=== PATIENT | female | born 1990 | race Caucasian/White ===

== ENCOUNTER 2016-12-14 11:21 | Emergency (ER) | payer BC, MEDICAID, OTHER ==
[~2016-12-14] VITALS: Ht 152.4 cm; Wt 45.0 kg
[~2016-12-14 11:21] MED LIST: NORE1TAB60 PO; SYNT150T PO
[2016-12-14 11:24] VITALS: BP 109/68; PULSE 107; RESP 15; TEMP 97.5; O2SAT 97
--- NOTE | 2016-12-14 11:27 | PD ---
Physical Exam Time Seen by Provider: 11:25 Narrative 26 y/o female lmp 2/5 currently . She presents with dizziness, numbness in the lower extremities, lightheadedness, dyspnea while at work today. VSS Seen at triage desk. Awaiting bed placement. Data Data Last Documented VS Vital Signs Date Time Temp Pulse Resp B/P Pulse Ox O2 Delivery O2 Flow Rate FiO2 12/14/16 11:24 97.5 107 15 109/68 97 MDM Medical Record Reviewed: Yes Supervised Visit with MIGUEL: No Gregg Acevedo December 14, 2016 11:27
[2016-12-14] MEDS ORDERED: SODIUM CHLOR 0.9% 1000 ML INJ 1,000 ML IV ONE (11:40)
[2016-12-14] MEDS ORDERED: ONDANSETRON HCL 4 MG/2 ML VIAL IVP ONE (11:45)
[2016-12-14] MEDS ORDERED: SODIUM CHLORIDE 0.9% FLUSH 10 ML FLUSH IVF PRN (11:45)
--- NOTE | 2016-12-14 11:47 | PD ---
HPI Chief Complaint: Related Problem Time Seen by Provider: 11:42 Travel History International Travel<30 days: No Contact w/Intl Traveler<30days: No Traveled to known affect area: No History of Present Illness HPI Patient is a 26-year-old female presenting to the emergency department with complaint of feeling shaky, palpitations, leg weakness, dizziness, blurry vision and shortness of breath. Patient states her symptoms have been ongoing for 2 months, they happen on a daily basis. Patient states she starts out feeling very shaky this is followed by a weakness in her legs then she gets dizzy and short of breath. While this is occurring she reports feeling her heart is racing. With the shortness of breath she reports that her chest feels heavy as if someone is sitting on it. Patient is approximately 8 weeks per her report, she's had nausea associated with the , she averages 1-2 episodes of vomiting daily. She reports a decreased appetite secondary to the nausea. Additionally patient states she was diagnosed with hypothyroidism, her normal weight is around 130 pounds, 6 months ago she started losing weight at that time she was 160 pounds now she reports her weight as 91 pounds. She has not been on any thyroid medication in over a year. Patient's past medical history is also significant for rheumatoid arthritis, she states she takes methylprednisolone daily. A1. Patient has not been evaluated by [employer] at this time, she recently secured Medicaid. PFSH Past Medical History Arthritis: Yes (rheumatoid) Autoimmune Disease: No Anxiety: No Depression: Yes Genitourinary: No Musculoskeletal: No Neurologic: No Psychiatric: No Respiratory: No Thyroid Disease: Yes ?: LMP: 09/05/16 : 0 Past Surgical History Other Surgery: Yes (TUBES IN EAR A CHILD) Social History Alcohol Use: No Tobacco Use: No Substance Use: No Allergies-Medications (Allergen,Severity, Reaction): Coded Allergies: Penicillin (Verified Allergy, Severe, Rash, 12/14/16) Reported Meds & Prescriptions Reported Meds & Active Scripts Active Reported Methylprednisolone 4 Mg Tab 4 Mg PO DAILY Review of Systems Except as stated in HPI: all other systems reviewed are Neg General / Constitutional: Positive: Weight Loss, No: Fever, Chills Eyes: Positive: Blurred Vision (now resolved) HENT: Positive: Lightheadedness, Congestion, No: Headaches Cardiovascular: Positive: Palpitations, Diaphoresis, No: Chest Pain or Discomfort Respiratory: Positive: Shortness of Breath Gastrointestinal: Positive: Nausea, Vomiting, Loss of Appetite, No: Abdominal Pain, Changes in Bowel Habits Genitourinary: No: Dysuria, Discharge, Vaginal Bleeding Neurologic: Positive: Weakness, Dizziness, No: Syncope, Focal Abnormalities, Change in Mentation, Sensory Disturbance Physical Exam Narrative GENERAL: Thin, well-developed, alert female. Resting comfortably in no acute distress. SKIN: Focused skin assessment warm/dry. HEAD: Atraumatic. Normocephalic. EYES: Pupils equal and round. No scleral icterus. No injection or drainage. ENT: No nasal bleeding or discharge. Mucous membranes pink and moist. NECK: Trachea midline. No JVD. CARDIOVASCULAR: Slightly tachycardic. No murmur appreciated. RESPIRATORY: No accessory muscle use. Clear to auscultation. Breath sounds equal bilaterally. GASTROINTESTINAL: Abdomen soft, non-tender, nondistended. Hepatic and splenic margins not palpable. MUSCULOSKELETAL: No obvious deformities. No clubbing. No cyanosis. No edema. NEUROLOGICAL: Awake and alert. No obvious cranial nerve deficits. Motor grossly within normal limits. Normal speech. PSYCHIATRIC: Appropriate mood and affect; insight and judgment normal. Data Data Last Documented VS Vital Signs Date Time Temp Pulse Resp B/P Pulse Ox O2 Delivery O2 Flow Rate FiO2 12/14/16 11:24 97.5 107 15 109/68 97 Orders Electrocardiogram (12/14/16 11:40) Ed Urine Pregnancytest Poc (12/14/16 11:40) Complete Blood Count With Diff (12/14/16 11:40) Comprehensive Metabolic Panel (12/14/16 11:40) Ckmb (Isoenzyme) Profile (12/14/16 11:40) Troponin I (12/14/16 11:40) Urinalysis - C+S If Indicated (12/14/16 11:40) Blood Glucose (12/14/16 11:40) Iv Access Insert/Monitor (12/14/16 11:40) Ondansetron Inj (Zofran Inj) (12/14/16 11:45) Sodium Chloride 0.9% Flush (Ns Flush) (12/14/16 11:45) Sodium Chlor 0.9% 1000 Ml Inj (Ns 1000 M (12/14/16 11:40) Thyroid Stimulating Hormone (12/14/16 11:40) Free Thyroxine (T4) (12/14/16 11:40) Urine Culture (12/14/16 11:53) Potassium Chloride (Kcl) (12/14/16 12:45) CKMB (12/14/16 11:53) CKMB% (12/14/16 11:53) Labs Laboratory Tests Test 12/14/16 11:53 White Blood Count 9.8 TH/MM3 Red Blood Count 4.62 MIL/MM3 Hemoglobin 13.8 GM/DL Hematocrit 41.1 % Mean Corpuscular Volume 89.1 FL Mean Corpuscular Hemoglobin 29.9 PG Mean Corpuscular Hemoglobin 33.5 % Concent Red Cell Distribution Width 14.4 % Platelet Count 185 TH/MM3 Mean Platelet Volume 7.9 FL Neutrophils (%) (Auto) 64.2 % Lymphocytes (%) (Auto) 30.1 % Monocytes (%) (Auto) 4.7 % Eosinophils (%) (Auto) 0.6 % Basophils (%) (Auto) 0.4 % Neutrophils # (Auto) 6.3 TH/MM3 Lymphocytes # (Auto) 2.9 TH/MM3 Monocytes # (Auto) 0.5 TH/MM3 Eosinophils # (Auto) 0.1 TH/MM3 Basophils # (Auto) 0.0 TH/MM3 CBC Comment DIFF FINAL Differential Comment Urine Color YELLOW Urine Turbidity HAZY Urine pH 6.0 Urine Specific [place] 1.026 Urine Protein 30 mg/dL Urine Glucose (UA) NEG mg/dL Urine Ketones NEG mg/dL Urine Occult Blood NEG Urine Nitrite NEG Urine Bilirubin NEG Urine Urobilinogen 2.0 MG/DL Urine Leukocyte Esterase LARGE Urine RBC 7 /hpf Urine WBC 121 /hpf Urine Squamous Epithelial 15 /hpf Cells Urine Bacteria RARE /hpf Urine Hyaline Casts 7 /lpf Urine Mucus MANY /lpf Microscopic Urinalysis Comment CULTURE INDICATED Sodium Level 136 MEQ/L Potassium Level 3.3 MEQ/L Chloride Level 99 MEQ/L Carbon Dioxide Level 25.5 MEQ/L Anion Gap 12 MEQ/L Blood Urea Nitrogen 8 MG/DL Creatinine 0.83 MG/DL Estimat Glomerular Filtration 83 ML/MIN Rate Random Glucose 93 MG/DL Calcium Level 8.7 MG/DL Total Bilirubin 0.5 MG/DL Aspartate Amino Transf 31 U/L (AST/SGOT) Alanine Aminotransferase 25 U/L (ALT/SGPT) Alkaline Phosphatase 50 U/L Total Creatine Kinase 149 U/L Creatine Kinase MB 1.6 NG/ML Troponin I LESS THAN 0.02 NG/ML Total Protein 6.8 GM/DL Albumin 3.7 GM/DL Free Thyroxine 0.15 NG/DL Thyroid Stimulating Hormone GREATER THAN 3rd Gen 100.000 uIU/ML MDM Medical Decision Making Medical Screen Exam Complete: Yes Emergency Medical Condition: Yes Interpretation(s) Laboratory Tests Test 12/14/16 11:53 White Blood Count 9.8 TH/MM3 Red Blood Count 4.62 MIL/MM3 Hemoglobin 13.8 GM/DL Hematocrit 41.1 % Mean Corpuscular Volume 89.1 FL Mean Corpuscular Hemoglobin 29.9 PG Mean Corpuscular Hemoglobin 33.5 % Concent Red Cell Distribution Width 14.4 % Platelet Count 185 TH/MM3 Mean Platelet Volume 7.9 FL Neutrophils (%) (Auto) 64.2 % Lymphocytes (%) (Auto) 30.1 % Monocytes (%) (Auto) 4.7 % Eosinophils (%) (Auto) 0.6 % Basophils (%) (Auto) 0.4 % Neutrophils # (Auto) 6.3 TH/MM3 Lymphocytes # (Auto) 2.9 TH/MM3 Monocytes # (Auto) 0.5 TH/MM3 Eosinophils # (Auto) 0.1 TH/MM3 Basophils # (Auto) 0.0 TH/MM3 CBC Comment DIFF FINAL Differential Comment Urine Color YELLOW Urine Turbidity HAZY Urine pH 6.0 Urine Specific [place] 1.026 Urine Protein 30 mg/dL Urine Glucose (UA) NEG mg/dL Urine Ketones NEG mg/dL Urine Occult Blood NEG Urine Nitrite NEG Urine Bilirubin NEG Urine Urobilinogen 2.0 MG/DL Urine Leukocyte Esterase LARGE Urine RBC 7 /hpf Urine WBC 121 /hpf Urine Squamous Epithelial 15 /hpf Cells Urine Bacteria RARE /hpf Urine Hyaline Casts 7 /lpf Urine Mucus MANY /lpf Microscopic Urinalysis Comment CULTURE INDICATED Sodium Level 136 MEQ/L Potassium Level 3.3 MEQ/L Chloride Level 99 MEQ/L Carbon Dioxide Level 25.5 MEQ/L Anion Gap 12 MEQ/L Blood Urea Nitrogen 8 MG/DL Creatinine 0.83 MG/DL Estimat Glomerular Filtration 83 ML/MIN Rate Random Glucose 93 MG/DL Calcium Level 8.7 MG/DL Total Bilirubin 0.5 MG/DL Aspartate Amino Transf 31 U/L (AST/SGOT) Alanine Aminotransferase 25 U/L (ALT/SGPT) Alkaline Phosphatase 50 U/L Total Creatine Kinase 149 U/L Creatine Kinase MB 1.6 NG/ML Troponin I LESS THAN 0.02 NG/ML Total Protein 6.8 GM/DL Albumin 3.7 GM/DL Free Thyroxine 0.15 NG/DL Thyroid Stimulating Hormone GREATER THAN 3rd Gen 100.000 uIU/ML Vital Signs Date Time Temp Pulse Resp B/P Pulse Ox O2 Delivery O2 Flow Rate FiO2 12/14/16 11:24 97.5 107 15 109/68 97 Differential Diagnosis Cardiac arrhythmia versus electrolyte abnormality versus hypothyroidism versus hyperthyroidism versus other Narrative Course Patient is a 26-year-old female presenting to the emergency department for evaluation of dizziness, weakness, palpitations. Patient is approximately 8 weeks. Urinalysis is indicative of urinary tract infection, patient has a reported allergy to penicillin but states she can take amoxicillin. Initially patient's TSH is 100, her free T4 is 0.15, patient will be started on levothyroxine at 1.6 mcg/kg. Discussed with patient he can take 4-6 weeks but this dose to become therapeutic she will need to follow up with a primary care provider. She was advised to get on an empty stomach 30 minutes prior to meals at the same time every day. She'll be given information regarding the [place] [facility], this was verbally discussed with her. Patient verbalizes understanding of discharge instructions. She is encouraged to return to emergency department for any new or worsening symptoms. Patient is stable for discharge. Diagnosis Primary Impression: Hypothyroidism Qualified Code: E03.9 - Hypothyroidism, unspecified type Additional Impression: Urinary tract infection Qualified Code: N39.0 - Urinary tract infection with hematuria, site unspecified Referrals: [facility] Patient Instructions: General Instructions, Hypothyroidism (DC), Urinary Tract Infection in Women (ED) Additional Instructions: Establish care with an police or patrol park officer for routine care Follow up with a primary doctor/the [facility] for continued monitoring of your thyroid function Take medications as directed Complete full course of antibiotics as prescribed, maintain adequate fluid intake Return to emergency department for any new or worsening symptoms Med/Other Pt SpecificInfo: Prescription(s) given Scripts Multivit-Min W/Fe-FA ( and Iron)1 Tab Tab1 Tab PO DAILY 30 Days Prov:Penny Holden 12/14/16 Nitrofurantoin Monohydrate Macrocrystals (Macrobid)100 Mg [id number] Mg PO BID 7 Days Ref 0 Prov:Penny Holden 12/14/16 Levothyroxine 75 Mcg Tab75 Mcg PO DAILY #30 TAB Ref 0 Prov:Penny Holden 12/14/16 Disposition: 01 DISCHARGE HOME Condition: Stable Penny Holden December 14, 2016 11:47
[2016-12-14 12:14] LABS: AUTOMATED NEUTROPHIL # 6.3 TH/MM3 (1.8-7.7); BASOPHIL % 0.4 % (0.0-2.0); EOSINOPHIL # 0.1 TH/MM3 (0-0.4); EOSINOPHIL % 0.6 % (0.0-4.0); HEMATOCRIT 41.1 % (35.0-46.0); HEMO FLAGS DIFF FINAL; LYMPH % 30.1 % (9.0-44.0); LYMPHOCYTE # 2.9 TH/MM3 (1.0-4.8); MEAN CELL VOLUME 89.1 FL (80.0-100.0); MEAN CORPUSCULAR HEMOGLOBIN 29.9 PG (27.0-34.0); MEAN CORPUSCULAR HGB CONC 33.5 % (32.0-36.0); MONO % 4.7 % (0.0-8.0); NEUT % 64.2 % (16.0-70.0); PLATELET COUNT 185 TH/MM3 (150-450); RED BLOOD COUNT 4.62 MIL/MM3 (4.00-5.30); RED CELL DISTRIBUTION WIDTH 14.4 % (11.6-17.2); WHITE BLOOD COUNT 9.8 TH/MM3 (4.0-11.0)
[2016-12-14 12:23] LABS: BACTERIA, URINE RARE /hpf; BLOOD, URINE NEG (NEG); COMMENT (UR) CULTURE INDICATED; CULTURE IF INDICATED CULTURE INDICATED; GLUCOSE,URINE NEG (NEG); HYALINE CAST, URINE 7 /lpf (RARE); KETONE, URINE NEG (NEG); MUCUS URINE MANY /lpf (OCC); NITRITE,URINE NEG (NEG); SQUAMOUS EPITHELIAL CELL URINE 15 /hpf (0-5); URINE COLOR YELLOW (YELLW/STRAW)
[2016-12-14] MEDS ORDERED: METH4TAB6 PO (12:26)
[2016-12-14 12:30] LABS: ANION GAP 12 MEQ/L (5-15); AST (GOT) 31 U/L (15-37); BICARBONATE 25.5 MEQ/L (21.0-32.0); BLOOD UREA NITROGEN 8 MG/DL (7-18); CHLORIDE 99 MEQ/L (98-107); GLOMERULAR FILTRATION RATE 83 ML/MIN (>89); POTASSIUM 3.3 MEQ/L (3.5-5.1); SODIUM (NA) 136 MEQ/L (136-145)
[2016-12-14 12:41] LABS: ALKALINE PHOSPHATASE 50 U/L (45-117); ALT (GPT) 25 U/L (10-53); CREATINE KINASE 149 U/L (26-192); FREE T4 0.15 NG/DL (0.76-1.46); TOTAL BILIRUBIN ADULT 0.5 MG/DL (0.2-1.0)
[2016-12-14] MEDS ORDERED: POTASSIUM CHLORIDE 10 MEQ CONTROLLED RELEASE TAB PO ONE (12:45)
[2016-12-14 12:53] LABS: CKMB 1.6 NG/ML (0.5-3.6)
[2016-12-14] MEDS ORDERED: MACR100C2 PO (13:07)
[2016-12-14] MEDS ORDERED: PRENTAB44 PO (13:07)
[2016-12-14] MEDS ORDERED: LEVO75TA3 PO (13:07)
--- NOTE | 2016-12-14 13:11 | PD ---
Data Data Last Documented VS Vital Signs Date Time Temp Pulse Resp B/P Pulse Ox O2 Delivery O2 Flow Rate FiO2 12/14/16 11:24 97.5 107 15 109/68 97 Orders Electrocardiogram (12/14/16 11:40) Ed Urine Pregnancytest Poc (12/14/16 11:40) Complete Blood Count With Diff (12/14/16 11:40) Comprehensive Metabolic Panel (12/14/16 11:40) Ckmb (Isoenzyme) Profile (12/14/16 11:40) Troponin I (12/14/16 11:40) Urinalysis - C+S If Indicated (12/14/16 11:40) Blood Glucose (12/14/16 11:40) Iv Access Insert/Monitor (12/14/16 11:40) Ondansetron Inj (Zofran Inj) (12/14/16 11:45) Sodium Chloride 0.9% Flush (Ns Flush) (12/14/16 11:45) Sodium Chlor 0.9% 1000 Ml Inj (Ns 1000 M (12/14/16 11:40) Thyroid Stimulating Hormone (12/14/16 11:40) Free Thyroxine (T4) (12/14/16 11:40) Urine Culture (12/14/16 11:53) Potassium Chloride (Kcl) (12/14/16 12:45) CKMB (12/14/16 11:53) CKMB% (12/14/16 11:53) Labs Laboratory Tests Test 12/14/16 11:53 White Blood Count 9.8 TH/MM3 Red Blood Count 4.62 MIL/MM3 Hemoglobin 13.8 GM/DL Hematocrit 41.1 % Mean Corpuscular Volume 89.1 FL Mean Corpuscular Hemoglobin 29.9 PG Mean Corpuscular Hemoglobin 33.5 % Concent Red Cell Distribution Width 14.4 % Platelet Count 185 TH/MM3 Mean Platelet Volume 7.9 FL Neutrophils (%) (Auto) 64.2 % Lymphocytes (%) (Auto) 30.1 % Monocytes (%) (Auto) 4.7 % Eosinophils (%) (Auto) 0.6 % Basophils (%) (Auto) 0.4 % Neutrophils # (Auto) 6.3 TH/MM3 Lymphocytes # (Auto) 2.9 TH/MM3 Monocytes # (Auto) 0.5 TH/MM3 Eosinophils # (Auto) 0.1 TH/MM3 Basophils # (Auto) 0.0 TH/MM3 CBC Comment DIFF FINAL Differential Comment Urine Color YELLOW Urine Turbidity HAZY Urine pH 6.0 Urine Specific [place] 1.026 Urine Protein 30 mg/dL Urine Glucose (UA) NEG mg/dL Urine Ketones NEG mg/dL Urine Occult Blood NEG Urine Nitrite NEG Urine Bilirubin NEG Urine Urobilinogen 2.0 MG/DL Urine Leukocyte Esterase LARGE Urine RBC 7 /hpf Urine WBC 121 /hpf Urine Squamous Epithelial 15 /hpf Cells Urine Bacteria RARE /hpf Urine Hyaline Casts 7 /lpf Urine Mucus MANY /lpf Microscopic Urinalysis Comment CULTURE INDICATED Sodium Level 136 MEQ/L Potassium Level 3.3 MEQ/L Chloride Level 99 MEQ/L Carbon Dioxide Level 25.5 MEQ/L Anion Gap 12 MEQ/L Blood Urea Nitrogen 8 MG/DL Creatinine 0.83 MG/DL Estimat Glomerular Filtration 83 ML/MIN Rate Random Glucose 93 MG/DL Calcium Level 8.7 MG/DL Total Bilirubin 0.5 MG/DL Aspartate Amino Transf 31 U/L (AST/SGOT) Alanine Aminotransferase 25 U/L (ALT/SGPT) Alkaline Phosphatase 50 U/L Total Creatine Kinase 149 U/L Creatine Kinase MB 1.6 NG/ML Troponin I LESS THAN 0.02 NG/ML Total Protein 6.8 GM/DL Albumin 3.7 GM/DL Free Thyroxine 0.15 NG/DL Thyroid Stimulating Hormone GREATER THAN 3rd Gen 100.000 uIU/ML MDM Supervised Visit with MIGUEL: Yes Narrative Course I, Dr. Hopper, have reviewed the advance practice practioner's documentation and am in agreement, met with the patient face to face, made the diagnosis, and the medical decision making was done by me. *My assessment and Findings: 26 year-old female here approximately 8 weeks based on LMP here with complaint of shakiness, palpitation, blurry vision, shortness of breath and weight gain. History of rheumatoid arthritis, takes chronic steroids for this. History of hypothyroidism and typically weighs around 130 pounds and is now 160. She's not been on any Synthroid for greater than one year. Exam is unremarkable, regular rate and rhythm mostly tachycardic upon initial arrival. Differential includes hypothyroidism, hyperthyroidism, electrolyte abnormality, arrhythmia, UTI, . No vaginal bleeding or abnormal discharge is just ectopic. Regnancy positive, EKG and laboratory workup notable for significant hypothyroidism. I suspect this is much of was causing patient's symptoms. Will be started on Synthroid and given outpatient referral for further management of this as well as to establish care for her . Antibiotics for UTI. Diagnosis Primary Impression: Hypothyroidism Qualified Code: E03.9 - Hypothyroidism, unspecified type Additional Impression: Urinary tract infection Qualified Code: N39.0 - Urinary tract infection with hematuria, site unspecified Referrals: [facility] Patient Instructions: General Instructions, Urinary Tract Infection in Women ( ED), Hypothyroidism (DC) Departure Forms: Tests/Procedures Additional Instruction: Establish care with an computer instructor for routine care Follow up with a primary doctor/the [facility] for continued monitoring of your thyroid function Take medications as directed Complete full course of antibiotics as prescribed, maintain adequate fluid intake Return to emergency department for any new or worsening symptoms Scripts Multivit-Min W/Fe-FA ( and Iron)1 Tab Tab1 Tab PO DAILY 30 Days Prov:Penny Holden 12/14/16 Nitrofurantoin Monohydrate Macrocrystals (Macrobid)100 Mg [id number] Mg PO BID 7 Days Ref 0 Prov:Penny Holden 12/14/16 Levothyroxine 75 Mcg Tab75 Mcg PO DAILY #30 TAB Ref 0 Prov:Penny Holden 12/14/16 Disposition: 01 DISCHARGE HOME Condition: Stable Chela Hopper MD December 14, 2016 13:11
--- NOTE | 2016-12-15 09:54 | EKG ---
Date Performed: 12/14/2016 Time Performed: 11:47:24 PTAGE: 26 years EKG: Sinus rhythm INCOMPLETE RIGHT BUNDLE BRANCH BLOCK NONSPECIFIC T-WAVE ABNORMALITY ABNORMAL ECG NO PREVIOUS TRACING DOCTOR: Jl Castro Interpretating Date/Time 12/15/2016 09:53:31
== END 2016-12-14 13:23 | disposition home or self-care (01) ==
LOC: NEPD 11:21
DX: E03.9 Hypothyroidism, unspecified (principal); O23.41 Unspecified infection of urinary tract in pregnancy, first trimester; B96.89 Other specified bacterial agents as the cause of diseases classified elsewhere; R94.31 Abnormal electrocardiogram [ECG] [EKG]; Z3A.08 8 weeks gestation of pregnancy; Z88.0 Allergy status to penicillin
CPT/HCPCS: 80053; 81001; 82550; 82552; 84439; 84443; 84484; 84703; 85025; 87086; 93005; 96361; 96374; 99285; J2405; J7030